=== PATIENT | male | born 1940 | race Caucasian/White ===

== ENCOUNTER 2017-04-18 09:57 | Emergency (ER) | payer MEDICARE, OTHER, MEDICAID ==
[~2017-04-18] VITALS: Ht 180.3 cm; Wt 99.8 kg
[2017-04-18 10:40] VITALS: BP 164/85
--- NOTE | 2017-04-18 11:04 | PHYS DOC ---
Past Medical History Past Medical History: Diabetes-Type II, [place] Past Surgical History: Coronary Bypass Surgery Additional Past Surgical Histo: knee, right inguinal hernia Alcohol Use: Occasionally Drug Use: None Adult General Chief Complaint Chief Complaint: ACCIDENTAL INGESTION HPI HPI Patient is a 76 year old male who presents with slight esophageal burning and "tickling" abdominal symptoms after accidentally ingestion a mouthful of home strength clorox bleach. States he woke from sleep to take his morning meds and was feeling groggy. He reached for his bottle of water but accidentally grabbed his bottle of bleach. He has taken approximately 16 ounces of water per the recommendations of the bottle. He denies nausea or vomiting, diarrhea, fever or chills. He was in his prior state of health. He denies suicidal ideation. Review of Systems Review of Systems Constitutional: Denies fever or chills [] Eyes: Denies change in visual acuity, redness, or eye pain [] HENT: Denies nasal congestion or sore throat [] Respiratory: Denies cough or shortness of breath [] Cardiovascular: No additional information not addressed in HPI [] GI: Denies nausea, vomiting, bloody stools or diarrhea [] : Denies dysuria or hematuria [] Musculoskeletal: Denies back pain or joint pain [] Integument: Denies rash or skin lesions [] Neurologic: Denies headache, focal weakness or sensory changes [] Endocrine: Denies polyuria or polydipsia [] Allergies Allergies Allergies Coded Allergies Type Severity Reaction Last Updated Verified Sulfa (Sulfonamide Antibiotics) Allergy Intermediate 04/18/17 Yes Physical Exam Physical Exam Constitutional: Well developed, well nourished, no acute distress, non-toxic appearance. [] HENT: Normocephalic, atraumatic, bilateral external ears normal, oropharynx moist, no oral exudates, nose normal. [] Eyes: PERRLA, EOMI. [] Neck: Normal range of motion, supple. [] Cardiovascular:Heart rate regular rhythm [] Lungs & Thorax: Bilateral breath sounds clear to auscultation [] Abdomen: Bowel sounds normal, soft, no tenderness. [] Skin: Warm, dry, no erythema, no rash. [] Back: Normal ROM. [] Extremities: No tenderness, ROM intact, no edema. [] Neurologic: Alert and oriented X 3, normal motor function, normal sensory function, no focal deficits noted. [] Psychologic: Affect normal, judgement normal, mood normal. [] Current Patient Data Vital Signs Vital Signs Date Time Temp Pulse Resp B/P (MAP) Pulse Ox O2 Delivery O2 Flow Rate FiO2 04/18/17 10:10 97.9 77 16 178/84 (115) 96 Room Air 97.9 Course & Med Decision Making Course & Med Decision Making Pertinent Labs and Imaging studies reviewed. (See chart for details) He has tolerated oral intake of water with no worsening of symptoms. No new symptoms. He would like to go home and follow-up with his primary care doctor. Return precautions given. He understands and agrees with plan. Dragon Disclaimer Dragon Disclaimer This electronic medical record was generated, in whole or in part, using a voice recognition dictation system. Departure Departure Impression: Primary Impression: Accidental ingestion of caustic alkali Disposition: HOME, SELF-CARE Condition: STABLE Patient Instructions: Nontoxic Ingestion Additional Instructions: Follow-up with your primary care doctor. Return for any concerns. Problem Qualifiers Primary Impression: Accidental ingestion of caustic alkali Encounter type: initial encounter Qualified Codes: T54.3X1A - Toxic effect of corrosive alkalis and alkali-like substances, accidental (unintentional), initial encounter Gallo PARK MD Apr 18, 2017 11:04
== END 2017-04-18 11:15 | disposition home or self-care (01) ==
LOC: ER 09:57
DX: T54.3X1A Toxic effect of corrosive alkalis and alkali-like substances, accidental (unintentional), initial encounter (principal); E11.9 Type 2 diabetes mellitus without complications; I25.2 Old myocardial infarction; Z95.5 Presence of coronary angioplasty implant and graft; Z98.890 Other specified postprocedural states; Z88.2 Allergy status to sulfonamides; Y93.89 Activity, other specified; Y99.8 Other external cause status; Y92.89 Other specified places as the place of occurrence of the external cause
CPT/HCPCS: 99281